=== PATIENT | female | born 1955 | race African-American/Black ===

== ENCOUNTER 2019-02-24 16:36 | Inpatient (IN) | payer MEDICARE, MEDICAID ==
[~2019-02-24] VITALS: Ht 165.1 cm; Wt 96.2 kg
[2019-02-24 17:02] VITALS: BP 142/85
[2019-02-24] MEDS ORDERED: DOCUSATE SODIUM 100MG CAPSULE PO PRN (17:15)
[2019-02-24] MEDS ORDERED: GUAIFENESIN 200MG/10ML SUGAR FREE UDC PO PRN (17:15)
[2019-02-24] MEDS ORDERED: METHYLPREDNISOLONE SOD SUCC 125 MG/2 ML VIAL IV ONE (17:15)
[2019-02-24] MEDS ORDERED: DIPHENHYDRAMINE 50MG/ML VIAL IV PRN (17:15)
[2019-02-24] MEDS ORDERED: IPRATROPIUM/ALBUTEROL 0.5-3(2.5)MG/3ML NEB HHN PRN (17:15)
[2019-02-24] MEDS ORDERED: ONDANSETRON HCL 4MG/2ML INJ IV PRN (17:15)
[2019-02-24] MEDS ORDERED: METHYLPREDNISOLONE SOD SUCC 125 MG/2 ML VIAL IV NR (17:35)
[2019-02-24] MEDS: IPRATROPIUM/ALBUTEROL 0.5-3(2.5)MG/3ML NEB HHN SCH (17:54)
[2019-02-24] MEDS ORDERED: RACEPINEPHRINE 2.25% 0.5ML NEB VIAL HHN NR (18:00)
[2019-02-24 19:00] LABS: BG BASE EXCESS 0.3 mmol/L (-2.0-2.0); BG CARBOXYHEMOGLOBIN 0.4 % (0.5-1.5); BG DEOXYHEMOGLOBIN 1.4 % (0.0-5.0); BG FRACTION INSPIRED OXYGEN 28; BG HCO3 ACT 20.4 mmol/L (22.0-26.0); BG METHEMOGLOBIN 0.3 % (0.0-1.5); BG OXYGEN SATURATION 98.6 % (92.0-98.5); BG OXYHEMOGLOBIN 97.9 % (94.0-97.0); BG PCO2 22.8 mmHg (35.0-45.0); BG PO2 109.3 mmHg (75.0-100.0); BG SAMPLE SITE RIGHT RADIAL; BG TOTAL HEMOGLOBIN 14.4 g/dL (12.0-18.0); BG VENT MODE NASAL CANNULA
[2019-02-24] MEDS ORDERED: LEVOFLOXACIN 500MG PREMIX 100 ML IV NR (19:30)
[2019-02-24 19:36] VITALS: BP 165/81
[2019-02-24] MEDS ORDERED: IPRATROPIUM/ALBUTEROL 0.5-3(2.5)MG/3ML NEB HHN SCH (20:00)
[2019-02-24 21:00] VITALS: BP 156/68
[2019-02-24] MEDS ORDERED: FAMOTIDINE 20MG/2ML VIAL IV SCH (21:00)
[2019-02-24] MEDS ORDERED: CLONIDINE 0.1MG TABLET PO PRN (21:15)
[2019-02-24] MEDS: ACETAMINOPHEN 325MG TABLET PO PRN (21:26)
[2019-02-24] MEDS: GABAPENTIN 300MG CAPSULE PO SCH (22:40)
[2019-02-24] MEDS: LORATADINE 10MG TABLET PO SCH (22:41)
[2019-02-25] MEDS: ZOLPIDEM TARTRATE 5MG TABLET PO PRN ×2 (00:32→22:28)
[2019-02-25 00:33] VITALS: BP 137/76
[2019-02-25] MEDS: METHYLPREDNISOLONE SOD SUCC 40 MG/ML VIAL IV SCH ×3 (01:43→17:30)
[2019-02-25] MEDS: IPRATROPIUM/ALBUTEROL 0.5-3(2.5)MG/3ML NEB HHN SCH ×6 (02:02→20:41)
[2019-02-25 04:01] VITALS: BP 124/51
[2019-02-25] MEDS ORDERED: ALBU4TAB6 MT (04:42)
[2019-02-25] MEDS ORDERED: BENA5TAB6 MT (04:42)
[2019-02-25] MEDS ORDERED: AMLO10TA4 MT (04:42)
[2019-02-25] MEDS ORDERED: GABA-531 MT (04:42)
[2019-02-25] MEDS ORDERED: MONT10TA21 MT (04:42)
[2019-02-25] MEDS ORDERED: PRED-276 PO (04:42)
[2019-02-25] MEDS ORDERED: BUDE6HFA INH (04:42)
[2019-02-25] MEDS ORDERED: LORA10CA MT (04:42)
[2019-02-25] MEDS: ACETAMINOPHEN 325MG TABLET PO PRN (06:47)
[2019-02-25] MEDS: GABAPENTIN 300MG CAPSULE PO SCH ×3 (06:47→21:02)
[2019-02-25 07:40] LABS: BASOPHILS % 0.2 % (0.0-2.0); HEMATOCRIT. 38.6 % (36.0-48.0); HEMOGLOBIN. 12.7 g/dL (12.0-16.0); LYMPHOCYTES % 13.3 % (20.0-50.0); MEAN CORPUSCULAR HEMOGLOBIN 27.7 pg (28.0-32.0); MEAN CORPUSCULAR VOLUME 84.1 fL (81.0-99.0); MEAN PLATELET VOLUME 9.4 fl (7.4-10.4); MONOCYTES % 1.7 % (2.0-8.0); NEUTROPHILS % 84.8 % (40.0-76.0); PLATELET 341 x1000/uL (130-400); RED BLOOD CELL COUNT 4.58 mill/uL (4.2-5.4); RED CELL DISTRIBUTION WIDTH 13.9 % (11.6-14.6)
[2019-02-25 07:54] LABS: CHLORIDE 102 mEq/L (98-107)
[2019-02-25 08:00] VITALS: BP 138/70
[2019-02-25] MEDS: BUDESONIDE 0.5MG/2ML NEB HHN SCH ×2 (08:24→20:41)
[2019-02-25] MEDS ORDERED: POTASSIUM CHLORIDE 20MEQ TABLET SR PO NR ×2 (09:07→14:00)
[2019-02-25] MEDS: FAMOTIDINE 20MG/2ML VIAL IV SCH ×2 (09:30→21:02)
[2019-02-25] MEDS: AMLODIPINE 10MG TABLET PO SCH (09:30)
[2019-02-25 12:00] VITALS: BP 129/51
[2019-02-25] MEDS ORDERED: GUAIFENESIN/CODEINE 200-20MG/10ML UDC PO PRN (13:00)
[2019-02-25] MEDS ORDERED: BENZONATATE 100MG CAPSULE PO PRN (13:00)
[2019-02-25] MEDS: HYDROCODONE/ACETAMINOPHEN 5/325MG TABLET PO PRN (13:39)
[2019-02-25] MEDS ORDERED: LEVOFLOXACIN 500MG PREMIX 100 ML IV SCH (14:00)
[2019-02-25] MEDS: CEFTRIAXONE 1 G PREMIX 50 ML IV SCH (15:12)
[2019-02-25 16:00] VITALS: BP 107/45
[2019-02-25] MEDS: THEOPHYLLINE ANHYDROUS 80 MG/15 ML 120ML PO SCH ×2 (17:30→21:03)
[2019-02-25] MEDS: MONTELUKAST SODIUM 10MG TABLET PO SCH (17:30)
[2019-02-25 18:09] LABS: CLARITY URINE CLEAR (CLEAR); COLOR URINE YELLOW (YELLOW); KETONES URINE NEGATIVE (NEGATIVE); LEUKOCYTE ESTERASE URINE NEGATIVE (NEGATIVE); NITRITE URINE NEGATIVE (NEGATIVE); OCCULT BLOOD URINE NEGATIVE (NEGATIVE); PH URINE 6.5 (4.5-8.0); PROTEIN URINE NEGATIVE (NEGATIVE); SPECIFIC GRAVITY URINE 1.009 (1.005-1.030); UROBILINOGEN URINE 0.2 E.U./dL (0.2-1.0)
[2019-02-25 20:00] VITALS: BP 110/64
[2019-02-25] MEDS: LORATADINE 10MG TABLET PO SCH (21:02)
[2019-02-25] MEDS: LORAZEPAM 2MG/ML CPJ IV PRN (21:19)
[2019-02-26] VITALS: BP 114/78
[2019-02-26] MEDS: IPRATROPIUM/ALBUTEROL 0.5-3(2.5)MG/3ML NEB HHN SCH ×6 (00:15→21:30)
[2019-02-26] MEDS: METHYLPREDNISOLONE SOD SUCC 40 MG/ML VIAL IV SCH ×4 (01:48→22:59)
[2019-02-26 04:00] VITALS: BP 142/74
[2019-02-26] MEDS: THEOPHYLLINE ANHYDROUS 80 MG/15 ML 120ML PO SCH ×3 (05:29→22:59)
[2019-02-26] MEDS: GABAPENTIN 300MG CAPSULE PO SCH ×3 (05:29→22:59)
[2019-02-26 06:48] LABS: BASOPHILS % 0.2 % (0.0-2.0); HEMATOCRIT. 40.6 % (36.0-48.0); HEMOGLOBIN. 13.2 g/dL (12.0-16.0); LYMPHOCYTES % 8.1 % (20.0-50.0); MEAN CORPUSCULAR HEMOGLOBIN 27.6 pg (28.0-32.0); MEAN CORPUSCULAR VOLUME 85.1 fL (81.0-99.0); MEAN PLATELET VOLUME 9.6 fl (7.4-10.4); MONOCYTES % 3.6 % (2.0-8.0); NEUTROPHILS % 88.1 % (40.0-76.0); PLATELET 344 x1000/uL (130-400); RED BLOOD CELL COUNT 4.77 mill/uL (4.2-5.4); RED CELL DISTRIBUTION WIDTH 13.6 % (11.6-14.6)
[2019-02-26 06:52] LABS: CHLORIDE 102 mEq/L (98-107)
[2019-02-26 08:00] VITALS: BP 131/56
[2019-02-26] MEDS ORDERED: POTASSIUM CHLORIDE 20MEQ TABLET SR PO NR (08:00)
[2019-02-26] MEDS: BUDESONIDE 0.5MG/2ML NEB HHN SCH ×2 (08:28→21:30)
[2019-02-26] MEDS: AMLODIPINE 10MG TABLET PO SCH (09:03)
[2019-02-26] MEDS: GUAIFENESIN-DM 200MG-20MG/10ML UDC PO PRN ×2 (09:03→15:42)
[2019-02-26] MEDS: FAMOTIDINE 20MG/2ML VIAL IV SCH ×2 (09:03→22:58)
[2019-02-26] MEDS: HYDROCODONE/ACETAMINOPHEN 5/325MG TABLET PO PRN (10:07)
[2019-02-26 11:39] VITALS: BP 142/80
[2019-02-26] MEDS: CEFTRIAXONE 1 G PREMIX 50 ML IV SCH (13:34)
[2019-02-26] MEDS ORDERED: RACEPINEPHRINE 2.25% 0.5ML NEB VIAL HHN SCH (14:15)
[2019-02-26] MEDS ORDERED: THROAT LOZENGES-BENZOCAINE/MENTH/CETYLPYRD CL LOZENGES MM PRN (14:15)
[2019-02-26] MEDS: LORAZEPAM 2MG/ML CPJ IV PRN (15:40)
[2019-02-26] MEDS: CEFEPIME 1,000 MG in DEXTROSE 5% WATER 50 ML IV SCH (15:41)
[2019-02-26 15:52] VITALS: BP 136/69
[2019-02-26] MEDS: ACETYLCYSTEINE 100MG/ML 10% VIAL 4ML INH SCH (15:55)
[2019-02-26] MEDS: METRONIDAZOLE 500 MG PREMIX 100 ML IV SCH ×2 (17:02→22:58)
[2019-02-26] MEDS: MONTELUKAST SODIUM 10MG TABLET PO SCH (17:09)
[2019-02-26] MEDS ORDERED: PREDNISONE 20MG TABLET PO SCH (17:40)
[2019-02-26 20:00] VITALS: BP 126/56
[2019-02-26] MEDS: LORATADINE 10MG TABLET PO SCH (20:52)
[2019-02-26] MEDS: ZOLPIDEM TARTRATE 5MG TABLET PO PRN (23:28)
[2019-02-27] VITALS: BP 136/58
[2019-02-27] MEDS: IPRATROPIUM/ALBUTEROL 0.5-3(2.5)MG/3ML NEB HHN SCH ×6 (01:15→20:49)
[2019-02-27] MEDS: ACETYLCYSTEINE 100MG/ML 10% VIAL 4ML INH SCH ×3 (01:15→15:25)
[2019-02-27 04:00] VITALS: BP 141/78
[2019-02-27] MEDS: METHYLPREDNISOLONE SOD SUCC 40 MG/ML VIAL IV SCH (05:25)
[2019-02-27] MEDS: GABAPENTIN 300MG CAPSULE PO SCH ×3 (05:26→21:03)
[2019-02-27] MEDS: METRONIDAZOLE 500 MG PREMIX 100 ML IV SCH ×3 (05:26→21:02)
[2019-02-27] MEDS: THEOPHYLLINE ANHYDROUS 80 MG/15 ML 120ML PO SCH (06:43)
[2019-02-27] MEDS: CEFEPIME 1,000 MG in DEXTROSE 5% WATER 50 ML IV SCH ×2 (06:43→17:47)
[2019-02-27 06:57] LABS: BASOPHILS % 0.1 % (0.0-2.0); HEMATOCRIT. 37.5 % (36.0-48.0); HEMOGLOBIN. 12.4 g/dL (12.0-16.0); LYMPHOCYTES % 8.6 % (20.0-50.0); MEAN CORPUSCULAR VOLUME 84.7 fL (81.0-99.0); MEAN PLATELET VOLUME 9.3 fl (7.4-10.4); NEUTROPHILS % 87.3 % (40.0-76.0); PLATELET 344 x1000/uL (130-400); RED BLOOD CELL COUNT 4.43 mill/uL (4.2-5.4); RED CELL DISTRIBUTION WIDTH 13.6 % (11.6-14.6)
[2019-02-27 06:59] LABS: CHLORIDE 101 mEq/L (98-107)
[2019-02-27] MEDS: BUDESONIDE 0.5MG/2ML NEB HHN SCH ×2 (08:40→20:50)
[2019-02-27] MEDS: FAMOTIDINE 20MG/2ML VIAL IV SCH ×2 (09:10→21:03)
[2019-02-27] MEDS: AMLODIPINE 10MG TABLET PO SCH (09:11)
[2019-02-27] MEDS ORDERED: LORAZEPAM 2MG/ML CPJ IV PRN (11:00)
[2019-02-27] MEDS ORDERED: TERBUTALINE SULFATE 1MG/ML VIAL SUBCUT NR (11:00)
[2019-02-27] MEDS ORDERED: SODIUM CHLORIDE 3% FOR INH 15ML VIAL NEB INH SCH (11:00)
[2019-02-27 12:00] VITALS: BP 132/73
[2019-02-27] MEDS: LORAZEPAM 2MG/ML CPJ IV PRN ×2 (14:23→23:20)
[2019-02-27] MEDS ORDERED: SODIUM CHLORIDE 3% FOR INH 4ML UD NEB INH SCH ×2 (15:30→19:00)
[2019-02-27 16:00] VITALS: BP 127/66
[2019-02-27] MEDS: PREDNISONE 20MG TABLET PO SCH (17:47)
[2019-02-27] MEDS: MONTELUKAST SODIUM 10MG TABLET PO SCH (17:47)
[2019-02-27 20:25] VITALS: BP 136/84
[2019-02-27] MEDS: LORATADINE 10MG TABLET PO SCH (21:03)
[2019-02-27] MEDS: HYDROCODONE/ACETAMINOPHEN 5/325MG TABLET PO PRN (21:20)
[2019-02-27] MEDS: ZOLPIDEM TARTRATE 5MG TABLET PO PRN (23:53)
[2019-02-28] VITALS (8 sets, daily range): BP systolic 130–150; BP diastolic 59–92
[2019-02-28] MEDS: ACETYLCYSTEINE 100MG/ML 10% VIAL 4ML INH SCH ×3 (00:50→08:28)
[2019-02-28] MEDS: IPRATROPIUM/ALBUTEROL 0.5-3(2.5)MG/3ML NEB HHN SCH ×6 (00:56→20:40)
[2019-02-28] MEDS: METRONIDAZOLE 500 MG PREMIX 100 ML IV SCH ×3 (05:14→21:04)
[2019-02-28] MEDS: GABAPENTIN 300MG CAPSULE PO SCH ×3 (06:43→21:10)
[2019-02-28] MEDS: CEFEPIME 1,000 MG in DEXTROSE 5% WATER 50 ML IV SCH ×2 (08:29→17:42)
[2019-02-28] MEDS: FAMOTIDINE 20MG/2ML VIAL IV SCH ×2 (08:29→21:04)
[2019-02-28] MEDS: PREDNISONE 20MG TABLET PO SCH ×2 (08:29→16:18)
[2019-02-28] MEDS: AMLODIPINE 10MG TABLET PO SCH (08:30)
[2019-02-28] MEDS: BUDESONIDE 0.5MG/2ML NEB HHN SCH (09:00)
[2019-02-28] MEDS ORDERED: POTASSIUM CHLORIDE 20MEQ TABLET SR PO NR (10:08)
[2019-02-28] MEDS ORDERED: TERBUTALINE SULFATE 1MG/ML VIAL SUBCUT NR (11:00)
[2019-02-28] MEDS: MONTELUKAST SODIUM 10MG TABLET PO SCH (16:18)
[2019-02-28] MEDS: LORATADINE 10MG TABLET PO SCH (21:04)
[2019-02-28] MEDS: ZOLPIDEM TARTRATE 5MG TABLET PO PRN (23:00)
[2019-03-01] VITALS: BP 114/58
[2019-03-01] MEDS: IPRATROPIUM/ALBUTEROL 0.5-3(2.5)MG/3ML NEB HHN SCH ×7 (00:50→23:50)
[2019-03-01 04:00] VITALS: BP 134/67
[2019-03-01] MEDS: METRONIDAZOLE 500 MG PREMIX 100 ML IV SCH ×3 (05:17→21:34)
[2019-03-01] MEDS: GABAPENTIN 300MG CAPSULE PO SCH ×3 (06:28→21:34)
[2019-03-01] MEDS: CEFEPIME 1,000 MG in DEXTROSE 5% WATER 50 ML IV SCH ×2 (06:28→17:31)
[2019-03-01 07:12] LABS: HEMATOCRIT. 37.7 % (36.0-48.0); HEMOGLOBIN. 12.4 g/dL (12.0-16.0); MEAN CORPUSCULAR HEMOGLOBIN 27.7 pg (28.0-32.0); MEAN CORPUSCULAR VOLUME 83.8 fL (81.0-99.0); MEAN PLATELET VOLUME 8.9 fl (7.4-10.4); PLATELET 315 x1000/uL (130-400); RED BLOOD CELL COUNT 4.49 mill/uL (4.2-5.4); RED CELL DISTRIBUTION WIDTH 13.6 % (11.6-14.6)
[2019-03-01 07:42] LABS: CHLORIDE 104 mEq/L (98-107)
[2019-03-01] MEDS: PREDNISONE 20MG TABLET PO SCH ×2 (09:44→17:09)
[2019-03-01] MEDS: AMLODIPINE 10MG TABLET PO SCH (09:44)
[2019-03-01] MEDS: FAMOTIDINE 20MG/2ML VIAL IV SCH ×2 (10:03→21:33)
[2019-03-01 13:40] LABS: PLATELET ESTIMATE NORMAL
[2019-03-01] MEDS: MONTELUKAST SODIUM 10MG TABLET PO SCH (17:05)
[2019-03-01 20:00] VITALS: BP 142/89
[2019-03-01] MEDS ORDERED: POTASSIUM CHLORIDE 20MEQ TABLET SR PO NR (20:30)
[2019-03-01] MEDS: BUDESONIDE 0.5MG/2ML NEB HHN SCH (20:35)
[2019-03-01] MEDS: LORATADINE 10MG TABLET PO SCH (21:33)
[2019-03-01] MEDS: ACETYLCYSTEINE 100MG/ML 10% VIAL 4ML INH SCH (22:00)
[2019-03-01] MEDS: ZOLPIDEM TARTRATE 5MG TABLET PO PRN (22:46)
[2019-03-02] VITALS: BP 106/78
[2019-03-02 04:00] VITALS: BP 142/62
[2019-03-02] MEDS: IPRATROPIUM/ALBUTEROL 0.5-3(2.5)MG/3ML NEB HHN SCH ×5 (04:34→20:15)
[2019-03-02] MEDS: CEFEPIME 1,000 MG in DEXTROSE 5% WATER 50 ML IV SCH ×2 (05:05→17:53)
[2019-03-02] MEDS: METRONIDAZOLE 500 MG PREMIX 100 ML IV SCH ×3 (06:11→21:21)
[2019-03-02] MEDS: GABAPENTIN 300MG CAPSULE PO SCH ×3 (06:11→21:22)
[2019-03-02 08:00] VITALS: BP 142/74
[2019-03-02] MEDS: PREDNISONE 20MG TABLET PO SCH ×2 (08:49→17:53)
[2019-03-02] MEDS: AMLODIPINE 10MG TABLET PO SCH (08:49)
[2019-03-02] MEDS: BUDESONIDE 0.5MG/2ML NEB HHN SCH ×2 (08:52→20:15)
[2019-03-02] MEDS: ACETYLCYSTEINE 100MG/ML 10% VIAL 4ML INH SCH ×2 (08:52→16:32)
[2019-03-02] MEDS: FAMOTIDINE 20MG/2ML VIAL IV SCH ×2 (08:56→21:22)
[2019-03-02 11:15] LABS: CHLORIDE 106 mEq/L (98-107)
[2019-03-02 12:00] VITALS: BP 154/90
[2019-03-02 16:00] VITALS: BP 139/71
[2019-03-02] MEDS: MONTELUKAST SODIUM 10MG TABLET PO SCH (17:53)
[2019-03-02 20:00] VITALS: BP 101/65
[2019-03-02] MEDS: LORATADINE 10MG TABLET PO SCH (21:22)
[2019-03-02] MEDS: ZOLPIDEM TARTRATE 5MG TABLET PO PRN (22:31)
[2019-03-03] VITALS: BP 120/57
[2019-03-03] MEDS: IPRATROPIUM/ALBUTEROL 0.5-3(2.5)MG/3ML NEB HHN SCH ×4 (00:10→12:00)
[2019-03-03] MEDS: ACETYLCYSTEINE 100MG/ML 10% VIAL 4ML INH SCH ×2 (00:10→07:53)
[2019-03-03 04:00] VITALS: BP 133/72
[2019-03-03] MEDS: CEFEPIME 1,000 MG in DEXTROSE 5% WATER 50 ML IV SCH (05:20)
[2019-03-03] MEDS: GABAPENTIN 300MG CAPSULE PO SCH (06:08)
[2019-03-03] MEDS: METRONIDAZOLE 500 MG PREMIX 100 ML IV SCH (06:08)
[2019-03-03] MEDS: BUDESONIDE 0.5MG/2ML NEB HHN SCH (07:53)
[2019-03-03 08:00] VITALS: BP 135/73
[2019-03-03] MEDS: AMLODIPINE 10MG TABLET PO SCH (10:12)
[2019-03-03] MEDS: FAMOTIDINE 20MG/2ML VIAL IV SCH (10:12)
[2019-03-03] MEDS: PREDNISONE 20MG TABLET PO SCH (10:12)
[2019-03-03 11:18] VITALS: BP 132/69
== END 2019-03-03 12:32 | disposition home or self-care (01) | DRG 189 ==
LOC: 8WST 16:36
PROVIDERS: ADMIT Internal Medicine Critical Care Medicine; ATTEND Internal Medicine Critical Care Medicine
DX: J96.00 Acute respiratory failure, unspecified whether with hypoxia or hypercapnia (principal); J45.901 Unspecified asthma with (acute) exacerbation; R65.10 Systemic inflammatory response syndrome (SIRS) of non-infectious origin without acute organ dysfunction; I10 Essential (primary) hypertension; J32.9 Chronic sinusitis, unspecified; J31.0 Chronic rhinitis; K21.9 Gastro-esophageal reflux disease without esophagitis; T38.0X5A Adverse effect of glucocorticoids and synthetic analogues, initial encounter; F41.9 Anxiety disorder, unspecified; G47.00 Insomnia, unspecified; Z79.899 Other long term (current) drug therapy; Y92.89 Other specified places as the place of occurrence of the external cause
CPT/HCPCS: 36415; 36600; 71045; 80048; 82375; 82805; 83605; 83735; 84145; 87070; 87430; 87804; 94640; C1893; J0692; J0696; J1956; J2060; J2920; J2930; J3105; J3490; J7040; J7050; J7060; J7512; J7608; J7620; J7626

== ENCOUNTER → 2021-05-27 | Outpatient (CLI) | payer MEDICARE, MEDICAID ==
[~2021-05-27] MED LIST: ALBU4TAB6 MT; AMLO10TA4 MT; BENA5TAB6 MT; BUDE6HFA INH; GABA-532 MT; LORA10CA MT; MONT10TA21 MT; PRED-276 PO
== END | disposition home or self-care (01) ==
LOC: US 13:01
PROVIDERS: ATTEND Internal Medicine Critical Care Medicine
DX: L02.91 Cutaneous abscess, unspecified (principal)
CPT/HCPCS: 76800

== ENCOUNTER → 2022-02-15 | Day surgery (SDC) | payer MEDICARE, MEDICAID ==
[~2022-02-15] MED LIST changes: +BENA5TAB40 MT; -BENA5TAB6 MT; +LIDOCAINE HCL 1% 10 MG/ML 10ML VIAL ONE; +SODIUM BICARBONATE 4% (2.4MEQ) 5ML VIAL IV ONE
== END | disposition home or self-care (01) ==
LOC: RAD 10:22
PROVIDERS: ATTEND Internal Medicine Critical Care Medicine
DX: E04.2 Nontoxic multinodular goiter (principal); Z79.899 Other long term (current) drug therapy; Z88.8 Allergy status to other drugs, medicaments and biological substances
CPT/HCPCS: 10005; 10006; 88172; 88173; J3490

== ENCOUNTER → 2022-06-13 | Outpatient (CLI) | payer MEDICARE, MEDICAID ==
[~2022-06-13] MED LIST changes: +BARIUM SULFATE 176 GM SUSP.RECON ONE; +BARIUM SULFATE(VOLUMEN) 450 ML ORAL.SUSP ONE; -LIDOCAINE HCL 1% 10 MG/ML 10ML VIAL ONE; -SODIUM BICARBONATE 4% (2.4MEQ) 5ML VIAL IV ONE
== END | disposition home or self-care (01) ==
LOC: RAD 09:46
PROVIDERS: ATTEND Internal Medicine Critical Care Medicine
DX: R13.10 Dysphagia, unspecified (principal)
CPT/HCPCS: 74220